=== PATIENT | male | born 1985 | race Caucasian/White ===

== ENCOUNTER 2025-03-30 16:13 | Emergency (ER) | payer SELFPAY ==
[2025-03-30 16:17] VITALS: BP 164/98
[2025-03-30 16:41] LABS: Hematocrit 48.2 % (39.0-52.0); Hemoglobin 17.1 g/dL (13.0-18.0); Mean Corp Hgb Conc. 35.5 g/dL (33.0-37.0); Mean Corpuscular Volume 87.2 fL (80.0-94.0); Nucleated Red Blood Cells % 0 % (-); Platelet Count 229 10^3/uL (130-400); Red Cell Dist. Width 12.0 % (11.5-14.5)
[2025-03-30 16:54] LABS: ALT (SGPT) 13 U/L (0-50); AST (SGOT) 20 U/L (17-59); Albumin 5.0 g/dl (3.5-5.0); Alkaline Phosphatase 43 U/L (38-126); Blood Urea Nitrogen 21 mg/dl (9-20); Calcium 9.8 mg/dl (8.4-10.2); Carbon Dioxide 21 mmol/L (22-30); Chloride 107 mmol/L (98-107); Glucose 94 mg/dl (70-99); Lipase 42 U/L (23-300); Potassium 4.2 mmol/L (3.5-5.1); Sodium 140 mmol/L (135-145); Total Protein 8.4 g/dl (6.3-8.2); eGFR > 60.00
[2025-03-30 17:06] LABS: Urine Character Slightly Cloudy (Clear)
[2025-03-30 17:23] LABS: Urine White Cell 30-40 /HPF (0-5)
[2025-03-30] MEDS: NSS 1000 IV (21:16)
[2025-03-30] MEDS: BACTRIM DS 800 MG/160 MG 1 TABLET PO (21:54)
[2025-03-30 21:55] VITALS: BMI 27.0
[2025-03-30 21:56] VITALS: BP 133/80
--- NOTE | 2025-03-30 22:50 | ED.GENMED ---
Addendum entered and electronically signed by Darby Rios PA-C 04/02/25 09:07:
Urine culture growing >100,000 Pseudomonas. Patient prescribed Bactrim during ED visit. Patient called and notified of result. His PCP already switched him to Cipro. He has an appt with urology in the beginning of April.
Original Note:
History of Present Illness
General
Chief Complaint: Urinary Symptoms
Source: patient
Time Seen by Provider: 03/30/25 21:03
History of Present Illness
History of Present Illness:
Note:
CHIEF COMPLAINT(S)
Difficulty urinating and associated abdominal discomfort.
HISTORY OF PRESENT ILLNESS
The patient is a 39-year-old male presenting with difficulty urinating since Sunday night. He reports symptoms initially starting with a feeling of abdominal fullness and an inability to urinate, describing it as a 'straining' effort with only a
trickle of urine output. The patient also experienced chills, cold sweats, and what he perceives as feverish episodes over the weekend, although his current temperature is normal. He reports not having felt this before and mentions adjusting his
water intake due to these symptoms. He managed to provide a urine sample of about 50 milliliters recently. The symptoms have been persisting, with intermittent episodes where urination feels completely obstructed. The patient denies any significant
medical history, aside from an appendectomy in the past. He is sexually active with one partner, with no concerns for sexually transmitted diseases but expressed concern about the possibility of prostatitis.
PAST MEDICAL AND SURIGICAL HISTORY
Appendectomy (details unspecified by the patient).
PAST MEDICAL HISTORY
No chronic illnesses were identified. The patient claims he generally does not frequent medical consultations and reports good overall health.
ALLERGIES
Reported allergies to penicillin and cephalosporins, although the patient is unsure of the specific reactions and bases this on childhood records.
PHYSICAL EXAM
General: Alert, no acute distress.
Skin: Warm, dry.
Head: Normocephalic, atraumatic.
Neck: Supple, trachea midline.
Eye Ears, Nose, Mouth, and Throat: Oral mucosa moist.
Cardiovascular: Normal peripheral perfusion, no edema.
Respiratory: Respirations are non-labored.
Gastrointestinal: Abdomen soft, nondistended.
Back: Normal range of motion, normal alignment.
Musculoskeletal: Normal range of motion, normal strength.
Neurological: Alert and oriented to person, place, time, and situation. No focal neurological deficit observed.
Psychiatric: Cooperative, appropriate mood & affect.
Urogenital: Rectal examination revealed a slightly tender and boggy prostate. Scrotum normal.
PROBLEM LIST
Acute Problems: Possible prostatitis, dysuria, and incomplete bladder evacuation.
PLAN
- Initiate IV fluids to address potential dehydration.
- Begin empiric antibiotic therapy to cover common bacterial pathogens associated with prostatitis, considering the patients allergy profile.
- Obtain a urine culture to identify the causative organism and tailor antibiotic therapy accordingly.
- Arrange follow-up with urology as an outpatient to monitor symptom resolution and ensure healing.
- Instruct the patient to return if symptoms of urinary retention become severe or if there is complete obstruction, as catheterization may be considered.
- Educate the patient about avoiding catheterization through an infected prostate unless absolutely necessary due to the risk of further infection spread.
DIFFERENTIAL DIAGNOSIS
The Differential Diagnosis includes, in no particular order and is not limited to:
1. Prostatitis
2. Urinary tract infection
3. Bladder outlet obstruction
4. Urethral stricture
5. Benign prostatic hyperplasia
6. Kidney stones
7. Idiopathic urinary retention
8. Acute bacterial prostatitis
9. Atypical presentation of sexually transmitted infection
10. Neurogenic bladder dysfunction
Disposition:
SUMMARY OF ENCOUNTER
The patient is a 39-year-old male who presented with difficulty urinating and fever-like symptoms. Evaluation in the emergency department suggested a urinary tract infection (UTI) and possible prostatitis based on a rectal examination. The bladder
scan revealed only 90ccs, indicating no significant urinary retention.
DISPOSITION
The patient is recommended for discharge with instructions for outpatient follow-up with urology.
ASSESSMENT
Acute bacterial prostatitis suspected based on clinical presentation and examination findings.
EMERGENCY TREATMENTS ADMINISTERED
Bactrim (sulfamethoxazole and trimethoprim) was initiated for suspected bacterial prostatitis.
PLAN
- Treat with sulfamethoxazole and trimethoprim and tamsulosin as recommended by urology.
- Close follow-up with urology for further evaluation and management.
- Discharge instructions to monitor for worsening symptoms or urinary retention.
INDEPENDENT REVIEW OF LABS AND INTERPRETATION OF TESTS
My independent review of the CBC indicates leukocytosis with a white blood cell count of 20,000. My independent review of renal function shows normal creatinine levels. My independent review of the urinalysis reveals positive nitrites, 30-40 white
blood cells, and moderate bacteriuria.
MANAGEMENT OF THE PATIENTS CARE WAS DISCUSSED WITH
I discussed the patients management plan with urology, who agreed with the proposed treatment and recommended the addition of tamsulosin.
PATIENT EDUCATION AND COUNSELING
The patient was educated about the suspected diagnosis of acute bacterial prostatitis and informed about the importance of completing the prescribed antibiotic course. The need for close follow-up with a urology specialist was emphasized.
FOLLOW-UP INSTRUCTIONS
The patient is instructed to follow up closely with urology to monitor symptom resolution and ensure effective management of prostatitis.
MEDICATION RECONCILIATION
The patient was prescribed sulfamethoxazole and trimethoprim and tamsulosin for the management of suspected acute bacterial prostatitis.
MEDICAL DECISION MAKING
1. Number and Complexity of Problems Addressed: DDx includes acute bacterial prostatitis, urinary tract infection, bladder outlet obstruction, urethral stricture, benign prostatic hyperplasia, kidney stones, idiopathic urinary retention, atypical
sexually transmitted infection, and neurogenic bladder dysfunction.
2. Data:
Category 1
- My independent review of lab results included CBC showing leukocytosis, normal creatinine levels, and urinalysis indicating positive nitrites, white blood cells, and moderate bacteriuria.
Category 3
- Discussion of management with a urologist outlined treatment options and recommendations for prescribed medications.
3. Risk:
Prescription medication was prescribed, including sulfamethoxazole and trimethoprim, and tamsulosin.
DIAGNOSIS
1. Acute bacterial prostatitis, ICD-10: N41.0
2. Urinary tract infection, ICD-10: N39.0
Phy Exam
Physical Exam
Physical Exam:
.
Course
Orders/Labs/Results
Orders:
Orders
03/30/25 16:28
Complete Blood Count/With Diff Urgent
Comprehensive Metabolic Panel Urgent
Lipase Urgent
03/30/25 16:38
Urinalysis Reflex To Culture Urgent
Date Specimen was Collected: 03/30/25
Time Specimen was Collected: 16:37
Urine Microscopic Reflex Cult Urgent
Urine Culture Urgent
DAYAMI Source: U
Specimen Description:
Date Specimen was Collected: 03/30/25
Time Specimen was Collected: 16:37
03/30/25 21:03
0.9% Sodium Chloride 1000 ml [Nss] 1,000 ml IV BOLUS
03/30/25 21:32
Sulfamethox./Trimethoprim Ds [Bactrim Ds 800 mg/160 mg] 1 tablet PO NOW STA
03/30/25 22:52
Add On- LAB Urgent
Tests Added?: GC/Chlamydia PCR urine
03/30/25 23:16
Tamsulosin [Flomax] 0.4 mg .ROUTE .STK-MED ONE
03/30/25 23:34
Tamsulosin [Flomax] 0.4 mg PO NOW STA
Abnormal Lab Results
03/30/25 03/30/25
16:28 16:38
WBC 20.9 H 10^3/uL
(4.8-10.8)
Abs Immat Gran (auto) 0.1 H 10^3/uL
(0-0.05)
Absolute Neuts (auto) 18.2 H 10^3/uL
(1.4-6.5)
Absolute Monos (auto) 1.4 H 10^3/uL
(0.1-0.6)
Neutrophils % 86.9 H %
(42.2-75.2)
Lymphocytes % 6.1 L %
(20.5-51.1)
Carbon Dioxide 21 L mmol/L
(22-30)
BUN 21 H mg/dl
(9-20)
Total Protein 8.4 H g/dl
(6.3-8.2)
Urine Ketones 3+ A
(Negative)
Ur Occult Blood Reflex 4+ A
(Negative)
Urine Nitrite (Reflex) Positive A
(Negative)
Leukocyte Esterase Rfl 3+ A
(Negative)
Urine RBC 3-6 A /HPF
(0-2)
Urine WBC (Reflex) 30-40 A /HPF
(0-5)
Urine Bacteria (Reflex) Moderate A
(Negative)
Urine Albumin (Reflex) 2+ A
(Neg - Trace)
03/30/25 16:28
03/30/25 16:28
Vital Signs
Initial and Last Documented VS:
Initial Vital Signs
Temp Pulse Resp BP Pulse Ox
98.3 F 111 18 164/98 97
03/30/25 16:17 03/30/25 16:17 03/30/25 16:17 03/30/25 16:17 03/30/25 16:17
Last Documented Vital Signs
Temp Pulse Resp BP Pulse Ox
98.3 F 88 18 103/81 100
03/30/25 16:17 03/30/25 23:36 03/30/25 23:36 03/30/25 23:36 03/30/25 23:36
*Pulse Oximetry
SaO2: 98
Oxygen Mode of Delivery: Room air
Patient hypoxic: no
*Critical Care Note
Total Time (30-74mins, 75-104mins- exclusive of procedures): Not Applicable
ED Attending Note
-
Portions of this chart may have been created with voice recognition software.� Occasional wrong word or��sound alike� substitutions may have occurred due to the inherent limitations of voice recognition software.
Discharge Plan
Departure
Patient Disposition: Home (Routine Discharge)
Date of Disposition: 03/30/25
Time of Disposition: 22:52
Patient with high blood pressure during this ER visit?: No
Discharge Problem:
Acute bacterial prostatitis
Instructions: Bacterial prostatitis
Prescriptions:
New
sulfamethoxazole-trimethoprim [Bactrim DS] 800-160 mg tablet
1 tab PO BID Qty: 28 0RF
tamsulosin [Flomax] 0.4 mg capsule
0.4 mg PO HS Qty: 14 0RF
Referrals:
Dawit Braden MD [Active, Urology]
NONE,* [Family Provider, Internal Medicine]
Stand Alone Forms: Return to Work
Activity Restrictions/Additional Instructions:
Please see urology in the next 1 week for follow-up and reevaluation. Return immediately for inability urinate, abdominal pain, fevers, vomiting, inability to take medications or any other concerns. Drink plenty of fluids.
Interventions
Interventions:
*Risk Screen - Suicide Last Done: 03/30/25 16:17
*General Assessment Last Done: 03/30/25 16:17
*Neglect/Abuse Screening Last Done: 03/30/25 23:40
*ED- Fall Risk Assessment Last Done: 03/30/25 23:40
*ED COVID-19 Vaccine History Last Done: 03/30/25 23:40
*Nursing Disposition Last Done: 03/30/25 23:40
ED-Male Genitourinary Assessment Last Done: 03/30/25 21:29
Discharge Date and Time
Discharge Date/Time: 03/30/25 23:48
Print Language: CZECH
[2025-03-30] MEDS: FLOMAX 0.4 MG PO (23:34)
[2025-03-30 23:36] VITALS: BP 103/81
== END 2025-03-30 23:48 | disposition home or self-care (01) ==
LOC: EMR 16:13
PROVIDERS: Emergency Medicine; EMERGENCY PHYSICIAN Emergency Medicine
DX: N41.9 Inflammatory disease of prostate, unspecified (principal); N39.0 Urinary tract infection, site not specified; Z88.0 Allergy status to penicillin; Z88.1 Allergy status to other antibiotic agents
CPT/HCPCS: 99283; 96360; 80053; 81003; 81015; 83690; 85025; 87077; 87086; 87186; 87491; 87591